=== PATIENT | male | born 1950 | race African-American/Black ===

== ENCOUNTER 2019-10-03 04:51 | Inpatient (IN) | payer MEDICARE, OTHER ==
[2019-10-03] VITALS (17 sets, daily range): BP systolic 15–150; BP diastolic 74–96
[~2019-10-03] VITALS: Ht 180.3 cm; Wt 85.3 kg
--- NOTE | 2019-10-03 05:10 | NUR ---
MS RN ADMITTING NOTES RECEIVED PT FROM HOME WITH WALKER AND FAMILY. PT A/O X3 AND ABLE TO MAKE NEEDS KNOWN. PT AWAIT SX. PT DENIES PAIN AT THIS TIME. INSERTED IV ACCESS ON LAC #18G. RESPIRATIONS EVEN AND UNLABORED WITH NO S/S OF ACUTE DISTRESS OR SOB NOTED. PT ORIENTED TO UNIT AND STAFF. SAFETY MEASURES IN PLACE WITH BED IN LOWEST LOCKED POSITION WITH SIDE RAILS UP X2. CALL LIGHT WITHIN REACH. WILL CONTINUE TO MONITOR.
--- NOTE | 2019-10-03 07:29 | NUR ---
MS RN OPENING NOTES PT RECEIVED SITTING ON WHEELCHAIR BY BEDSIDE. A/O X 3-4. ABLE TO MAKE NEEDS KNOWN, DENIES PAIN OR ANY DISCOMFORTS AT THIS TIME. ON ROOM AIR, BREATHING EVEN AND UNLABORED. IV ACCESS ON LAC G# 18 INTACT, PATENT AND FLUSHES WELL. PT FOR SURGERY TODAY, NPO MAINTAINED. CALL LIGHT IN REACH. WILL CONTINUE TO MONITOR PT ACCORDINGLY.
--- NOTE | 2019-10-03 07:30 | NUR ---
MS RN NOTES MELISSA CHAIR RECEIVED FROM [facility] FOR FAMILY. CHARGE NURSE AWARE WELL ONCOMING NURSE.
--- NOTE | 2019-10-03 08:11 | NUR ---
MS RN NOTES PT IN BED RESTING AWAITING SX WITH FAMILY AT BEDSIDE. PT A/O X3 AND ABLE TO MAKE NEEDS KNOWN. ENDORSED TO ONCOMING NURSE FOR KILO.
--- NOTE | 2019-10-03 08:17 | NUR ---
RN NOTES PT PICKED-UP BY [facility]SP[employer] STAFF VIA PT'S BED TO SURGERY FOR RIGHT KNEE MEDIAL UNICOMPARTMENT ARTHROPLASTY.
[2019-10-03] MEDS ORDERED: AMLO5TAB9 PO (08:31)
[2019-10-03] MEDS ORDERED: HYDR-4354 PO (08:31)
[2019-10-03] MEDS ORDERED: ATOR10TA PO (08:31)
[2019-10-03] MEDS ORDERED: INSULIN (08:31)
[2019-10-03] MEDS ORDERED: METF-440 PO (08:31)
[2019-10-03] MEDS ORDERED: ALPR0.25 PO (08:31)
[2019-10-03] MEDS ORDERED: LOSA25TA27 PO (08:31)
[2019-10-03] MEDS ORDERED: ASPI-1169 PO (08:31)
[2019-10-03] MEDS ORDERED: MULT1TAB73 PO (08:31)
[2019-10-03] MEDS ORDERED: TRANEXAMIC ACID 3,000 MG in SODIUM CHLORIDE IRRIG SOLUTION 70 ML IR ONE (09:00)
[2019-10-03] MEDS ORDERED: MIDAZOLAM HCL 2 MG/2ML VIAL ONE (09:13)
[2019-10-03] MEDS ORDERED: FENTANYL PF 100MCG/2ML AMPUL ONE (09:13)
[2019-10-03] MEDS ORDERED: FAMOTIDINE/PF INJ 20 MG/2 ML VIAL IV ONE (09:14)
[2019-10-03] MEDS ORDERED: MEPERIDINE HCL/PF 100 MG/ML DISP.SYRIN ONE (09:14)
[2019-10-03] MEDS ORDERED: BUPIVACAINE 0.5 % PF 150 MG/30 ML VIAL ONE (09:15)
[2019-10-03] MEDS ORDERED: ALBU2.5V38 IH (09:54)
[2019-10-03] MEDS ORDERED: INSU100I26 SQ (09:54)
[2019-10-03] MEDS ORDERED: MONT10TA22 PO (09:54)
[2019-10-03] MEDS ORDERED: BACITRACIN 50000 UNITS/VIAL ONE (10:02)
[2019-10-03] MEDS: IV D5/0.45 NACL 1,000 ML IV PRN (12:45)
[2019-10-03] MEDS ORDERED: NALOXONE HCL 0.4 MG/ML AMPUL IV PRN (13:00)
[2019-10-03] MEDS ORDERED: DULCOLAX 10 MG/SUPP.RECT RC PRN (13:00)
[2019-10-03] MEDS ORDERED: MAGNESIUM HYDROXIDE 30 ML UDC PO PRN ×2 (13:00→15:00)
[2019-10-03] MEDS: DRONABINOL (2.5 MG) 2.5 MG CAPSULE PO SCH ×2 (13:00→20:54)
[2019-10-03] MEDS ORDERED: diphenhydrAMINE HCL 25 MG CAPSULE PO PRN (13:00)
[2019-10-03] MEDS ORDERED: SENOKOT 8.6 MG TABLET PO PRN (13:00)
[2019-10-03] MEDS ORDERED: CLONIDINE HCL 0.1 MG TABLET PO PRN (13:00)
[2019-10-03] MEDS ORDERED: TYLENOL 650 MG TABLET PO PRN (13:00)
[2019-10-03] MEDS ORDERED: oxyCODONE IR immediate release 5 MG PO PRN ×2 (13:00→21:30)
[2019-10-03] MEDS ORDERED: HYDROCODONE/APAP 10/325MG 1 EA TABLET PO PRN ×2 (13:00→15:00)
[2019-10-03] MEDS ORDERED: HYDROCODONE/APAP 5/325MG 1 EACH TABLET PO PRN ×2 (13:00→15:00)
[2019-10-03] MEDS ORDERED: MENTHOL/CETYLPYRD (CEPACOL) 1 LOZ LOZENGE MM PRN (13:00)
[2019-10-03] MEDS ORDERED: MAG HYDROX/AL HYDROX/SIMETH 30 ML UDC PO PRN ×2 (13:00→15:00)
[2019-10-03] MEDS ORDERED: ZOFRAN 4mg/2ML IV PRN (13:00)
[2019-10-03] MEDS ORDERED: ONDANSETRON HCL/PF 4 MG/2 ML VIAL IVP PRN ×2 (13:00→15:00)
[2019-10-03] MEDS ORDERED: AMBIEN 5 MG TABLET PO PRN (13:00)
[2019-10-03] MEDS ORDERED: COLACE 250 MG CAPSULE PO PRN (13:00)
--- NOTE | 2019-10-03 13:05 | NUR ---
RN NOTES PT RETURNED TO UNIT @ 1225 FROM SURGERY ACCOMPANIED BY Cristiana VACA S/P RIGHT KNEE UNICOMPARTMENTAL ARTHROPLASTY. PT IS SLIGHTLY LETHARGIC BUT ABLE TO RESPONSE TO VERBAL STIMULI AND FOLLOWS COMMANDS AT THIS TIME. PT NOTED WITH DRESSING ON RIGHT LEG WRAP WITH RUFINO BANDAGE, NO ACTIVE BLEEDING NOTED WITH SCD'S ON BOTH LEGS. MD TO CHANGE DRESSING ONLY. V/S TAKEN: BP 123/92, R 18.P 73, T 97.6F AND SP02 89%, PT PLACED ON 02 VIA N/C AT 2LPM AND SP02 WENT UP TO 98%. ALL ORDERS VERIFIED AND CARRIED OUT. ADMINISTERED D5/12NS AT 125ML/HR VIA LAC, NO S/S OF INFILTRATIONS NOTED. PT WITH NAM CATH IN PLACE AND ACTIVELY DRAINING CLEAR YELLOWISH URINE TO BEDSIDE URINARY BAG. BED PLACED IN LOW LOCKED POSITION WITH ST UP X2. CALL LIGHT PLACED WITHIN EASY REACH. WILL CONTINUE TO MONITOR.
[2019-10-03] MEDS: NICOTINE PATCH (21MG) 21 MG PATCH.TD24 TD SCH (14:08)
--- NOTE | 2019-10-03 14:21 | NUR ---
RN NOTES NICOTINE PATCH 21 MG APPLIED TO RIGHT DELTOID.
--- NOTE | 2019-10-03 14:30 | NUR ---
RN NOTES PT SEEN AND EVALUATED BY PHYSICAL THERAPIST, CPM MACHINE WAS PLACED AND SET AT 0-30 TOLERATED AND FUNCTIONING WELL. WILL CONTINUE TO MONITOR
[2019-10-03] MEDS: HYDROMORPHONE 1 MG/1 ML DISP.SYRIN SQ PRN ×2 (14:53→19:14)
--- NOTE | 2019-10-03 14:55 | NUR ---
RN NOTES/PAIN MANAGEMENT PT C/O PAIN ON HIS RIGHT KNEE WITH SCALE OF 9/10. PRN DILAUDID 0.5MG/O.5ML ADMINISTERED IVP AT 1452. WILL CONTINUE TO MONITOR AND REASSESS PT.
[2019-10-03] MEDS ORDERED: Z GUARD REMEDY 2 OZ OINT TP PRN (15:00)
[2019-10-03] MEDS ORDERED: ALBUTEROL FS 2.5 MG/3 ML VIAL.NEB IH PRN (15:00)
[2019-10-03] MEDS ORDERED: ALPRAZOLAM 0.25 MG TABLET PO PRN (15:00)
[2019-10-03] MEDS ORDERED: ACETAMINOPHEN 325 MG TABLET PO PRN (15:00)
[2019-10-03] MEDS ORDERED: ZOLPIDEM TARTRATE 5 MG TABLET PO PRN (15:00)
[2019-10-03] MEDS: ANCEF 1 G in IV D5W 50 ML IV SCH (16:06)
[2019-10-03] MEDS: DOCUSATE SODIUM 100 MG CAPSULE PO SCH (16:07)
[2019-10-03] MEDS: ASPIRIN 325 MG TABLET PO SCH (16:07)
--- NOTE | 2019-10-03 16:18 | NUR ---
RN NOTES/PAIN MANAGEMENT PT MOANING AND GRIMACING, VERBALIZED THAT HE'S IN PAIN 6/10 SCALE AND WANTS CPM MACHINE TO BE REMOVED. CPM MACHINE REMOVED AND PRN OXY 1R 5MG PO GIVEN AT 1618. WILL CONTINUE TO MONITOR AND REASSESS PT.
[2019-10-03] MEDS: ATORVASTATIN 10 MG TABLET PO SCH (17:19)
--- NOTE | 2019-10-03 18:50 | NUR ---
MS RN CLOSING NOTES PT IN BED ASLEEP AT THIS TIME, EASILY AWAKENS. AT BEDSIDE. A/O X3 AND ABLE TO MAKE NEEDS KNOWN. ON PRN SUPPLEMENTAL O2 AT 2LPM VIA N/C, TOLERATING WELL WITH NO SOB NOTED. DRESSING ON RIGHT/KNEE LEG WRAP WITH RUFINO BANDAGE C/D/I. NAM IN PLACE AND PATENT WITH CLEAR YELLOW URINE NOTED IN THE URINARY BAG, NAM CARE DONE. ALL NEEDS AND CARE ATTENDED WELL. SAFETY MEASURES IN PLACE. BED IN LOWEST, LOCKED POSITION WITH SR UP X2. WILL ENDORSE TO TRANSLATOR/INTERPRETER NURSE FOR KILO..
[2019-10-03] MEDS ORDERED: DEXTROSE 50%-WATER 50 ML DISP.SYRIN IV PRN (19:00)
--- NOTE | 2019-10-03 19:10 | NUR ---
MS RN NOTES RECEIVED ON BED A/O X4,S/P RIGHT KNEE ARTHROPLASTY,DRESSING INTACT AND DRY,WRAPPED WITH ELASTIC BANDAGE.DVT PUMP IN USED ON LEFT LOWER LEG.IVF D5 1/2 NS AT 125ML/HR RATE IN PROGRESS VIA IV PUMP ON LEFT AC,SITE PATENT.NAM CATH IN PLACE DRAINING YELLOWISH OUTPUT.C/O RIGHT KNEE PAIN 10/10 ON PAIN SCALE,WILL MEDICATE. AT BEDSIDE.INCENTIVE SPIROMETRY AT BEDSIDE,PATIENT ENCOURAGED TO USE IT WHILE AWAKE FOR LUNG EXERCISE.CALL LIGHT IN REACH,NEEDS ANTICIPATED.
--- NOTE | 2019-10-03 19:14 | NUR ---
MS RN NOTES PAIN MANAGEMENT C/O RIGHT KNEE PAIN 10/10 ON PAIN SCALE,DILAUDID 0.5MG IV GIVEN BY GARCIA BOOTH.WILL MONITOR FOR RELIEF.
[2019-10-03] MEDS: FAMOTIDINE (20 MG) 20 MG TABLET PO SCH (20:54)
[2019-10-03] MEDS ORDERED: HYDROMORPHONE 1 MG/1 ML DISP.SYRIN SQ PRN (21:00)
--- NOTE | 2019-10-03 21:00 | NUR ---
MS RN NOTES MD VISIT SEEN BY DR BROWN FOR PAIN MANAGEMENT,WITH ORDERS NOTED AND CARRIED OUT.
[2019-10-03] MEDS: BLOOD SUGAR DIAGNOSTIC 1 EACH STRIP IN SCH (21:50)
--- NOTE | 2019-10-03 21:50 | NUR ---
MS RN NOTES ACCU-CHECK BLOOD SUGAR CHECK 203,COVERED WITH HUMULIN R 4 UNITS,ALONG WITH INSULIN GLARGIN 25 UNITS,GIVEN SQ ON LEFT DELTOID.SNACKS PROVIDED AT BEDSIDE,WITH APPLE JUICE.
[2019-10-03] MEDS: MONTELUKAST SODIUM (10MG) 10 MG TABLET PO SCH (21:55)
--- NOTE | 2019-10-03 21:55 | NUR ---
MS RN NOTES MOANS IN PAIN,MEDICATED WITH OXY IR 5MG PO ORDERED ONE TIME BY PAIN MANAGEMENT DOCTOR STEPHANIE.
[2019-10-03] MEDS ORDERED: oxyCODONE IR immediate release 5 MG PO ONE (22:00)
[2019-10-03] MEDS: INSULIN GLARGINE, 100 UNIT/ML CARTRIDGE SQ SCH (22:06)
[2019-10-03] MEDS: INSULIN REGULAR, HUMAN 100 UNIT/ML 3 ML VIAL SQ PRN (22:08)
--- NOTE | 2019-10-03 22:55 | NUR ---
MS RN NOTES SLEEPING THIS TIME.KEPT WARM AND COMFORTABLE.
--- NOTE | 2019-10-04 01:00 | NUR ---
MS RN NOTES LAST DOSE OF ANCEF 1MG IV ADMINISTERED.
[2019-10-04] MEDS: ANCEF 1 G in IV D5W 50 ML IV SCH (01:03)
[2019-10-04] MEDS: HYDROMORPHONE 1 MG/1 ML DISP.SYRIN SQ PRN ×2 (01:14→05:38)
--- NOTE | 2019-10-04 01:14 | NUR ---
MS RN NOTES PAIN MANAGEMENT C/O RIGHT KNEE PAIN 7/10 ON PAIN SCALE.MEDICATED WITH DILAUDID 0.5MG IV ORDERED.WILL MONITOR FOR RELIEF.
[2019-10-04] MEDS: oxyCODONE IR immediate release 5 MG PO PRN ×4 (03:27→21:33)
--- NOTE | 2019-10-04 03:27 | NUR ---
MS RN NOTES AWAKE,REPOSITION SELF,C/O RIGHT KNEE PAIN 7/10 ON PAIN SCALE,MEDICATED WITH OXY IR 10MG PO ORDERED.
--- NOTE | 2019-10-04 05:38 | NUR ---
MS RN NOTES PAIN MANAGEMENT AWAKE,HAVING ORAL HYGIENE,C/O RIGHT KNEE PAIN 9/10 ON PAIN SCALE,MEDICATED WITH DILAUDID 0.5MG IV ORDERED.
[2019-10-04] MEDS: BLOOD SUGAR DIAGNOSTIC 1 EACH STRIP IN SCH ×4 (05:43→21:37)
--- NOTE | 2019-10-04 05:50 | NUR ---
MS RN NOTES ACCU-CHECK BLOOD SUGAR CHECK 103,NO INSULIN COVERAGE.
--- NOTE | 2019-10-04 06:08 | NUR ---
MS RN NOTES RE ASSESS,PAIN MANAGEMENT ADMINISTERED AT 0538,PATIENT CLAIMED STILL THE SAME AT 08/02, WILL FOLLOW UP TO MEDICATE WITH OXY IR PO IN AN HOUR ORDERED.
[2019-10-04 06:33] LABS: BASOPHILS % (AUTO) 0.5 % (0.0-2.0); EOSINOPHILS % (AUTO) 3.7 % (0.0-6.0); HEMATOCRIT 40 % (39-51); HEMOGLOBIN 13.3 g/dL (13.5-17.5); LYMPHOCYTES # (AUTO) 1.7 /CMM (0.8-4.8); LYMPHOCYTES % (AUTO) 23.2 % (20.0-44.0); MEAN CORPUSCULAR HGB CONC 33 g/dl (31.0-36.0); MEAN CORPUSCULAR VOLUME 96 fL (80-96); MONOCYTES % (AUTO) 13.3 % (2.0-12.0); NEUTROPHILS # (AUTO) 4.2 /CMM (1.8-8.9); NEUTROPHILS % (AUTO) 59.3 % (43.0-81.0); PLATELET COUNT (AUTO) 323 /CMM (150-450); RED BLOOD CELL COUNT(AUTO) 4.17 MIL/uL (4.5-6.0); WHITE BLOOD COUNT (AUTO) 7.1 K/uL (4.3-11.0)
--- NOTE | 2019-10-04 06:40 | NUR ---
MS RN NOTES STILL IN PAIN 7/10 ON PAIN SCALE,OXY IR 10MG PO GIVEN ORDERED 60 MINUTES APART WITH DILAUDID.
--- NOTE | 2019-10-04 07:00 | NUR ---
MS RN NOTES RESTING COMFORTABLY ON BED,STILL WITH ON OFF PAIN,MANAGE WITH DILAUDID IV AND OXY IR PO ALTERNATELY ORDERED BY DR BROWN.RIGHT KNEE DRESSING INTACT AND DRY.INCENTIVE SPIROMETRY USED WHILE AWAKE.IVF ON STANDBY,TAKING PO WELL.NEGATIVE FOR NAUSEA/VOMITING.ENCOURAGED AMBULATION IF TOLERATED.NAM CATH DRAINS WELL.IN NO ACUTE DISTRESS.NEEDS ATTENDED.
[2019-10-04 07:11] LABS: CREATININE 0.9 mg/dL (0.6-1.3); MAGNESIUM 1.5 mg/dL (1.8-2.4); PHOSPHORUS 2.5 mg/dL (2.5-4.9); POTASSIUM 3.8 mmol/L (3.5-5.1)
--- NOTE | 2019-10-04 07:30 | NUR ---
MS RN NOTES SPOKE TO DR BROWN REGARDING DILAUDID 0.5MG MISTAKENLY GIVEN IV,HE SAID ITS OK,AND JUST GIVE THE NEXT DOSE TO GIVE IT SQ.ALSO HE ORDERED TO D/C DILAUDID 0.5MG SQ AND OXY IR 5MG NOTED AND CARRIED OUT.NURSE BALDEMAR MADE AWARE OF NEW ORDER
--- NOTE | 2019-10-04 07:30 | NUR ---
m/s hot dog vendor: initial assessment received pt in bed, dozing off then suddenly awaken. c/o ashley wrap to rle too tight, adjusted ashley wrap per request. dressing remains c/d/i. at bedside. pt stated, "he just had his pain med, about to dose off, probably the pain on my knee due to ashley wrap being too tight, i will let my doctor (orthopedic) know when i see him."
[2019-10-04 08:00] VITALS: BP 152/87
[2019-10-04] MEDS: ASPIRIN 325 MG TABLET PO SCH ×2 (08:33→17:26)
[2019-10-04] MEDS: AMLODIPINE BESYLATE 5 MG TABLET PO SCH (08:33)
[2019-10-04] MEDS: TAMSULOSIN 0.4 MG CAP.SR.24H PO SCH (08:33)
[2019-10-04] MEDS: DRONABINOL (2.5 MG) 2.5 MG CAPSULE PO SCH ×2 (08:34→21:00)
[2019-10-04] MEDS: FAMOTIDINE (20 MG) 20 MG TABLET PO SCH ×2 (08:34→21:00)
[2019-10-04] MEDS: MULTIVITAMINS,THERAGRAN 1 UDTAB TABLET PO SCH (08:34)
[2019-10-04] MEDS: DOCUSATE SODIUM 100 MG CAPSULE PO SCH ×2 (08:34→17:26)
[2019-10-04] MEDS: LOSARTAN POTASSIUM 25 MG TABLET PO SCH (08:34)
[2019-10-04] MEDS: NICOTINE PATCH (21MG) 21 MG PATCH.TD24 TD SCH (08:35)
--- NOTE | 2019-10-04 08:45 | NUR ---
m/s gas well pumper: notes pt still c/o tightness on foam dressing. only md to change dressing and pt made aware and verbalized understanding. remains at bedside. pt able to wiggle toes and with good sensation and good circulation. salma arndt) used car salesperson for dr. pereira notified, spoke to him over the phone and will check and see pt when he gets here. pt and made aware.
[2019-10-04] MEDS ORDERED: ASPIRIN 81 MG TAB.CHEW PO SCH (09:00)
--- NOTE | 2019-10-04 09:30 | NUR ---
m/s panelboard operator: ortho f/u salma flores at bedside and removed rle dressing and re applied dressing and ashley wrap. noted alcira intact, clean, and dry prior to dressing changed. teaching provided to and pt not to remove the dressing until next visit at the orthopedic. pt and verbalized understanding. Addendum: 10/04/19 at 0940 by BALDEMAR MADRID LVN also received verbal order to remove the houston catheter.
[2019-10-04] MEDS: IV D5/0.45 NACL 1,000 ML IV PRN (09:39)
--- NOTE | 2019-10-04 09:48 | NUR ---
m/s academic support specialist: notes oxy ir 10mg given prior to p.t. tx and discomfort by rn student with rn instructor.
--- NOTE | 2019-10-04 09:51 | NUR ---
m/s property portfolio officer: notes houston catheter removed by rn instructor with rn studenttol. hui.
--- NOTE | 2019-10-04 10:10 | NUR ---
m/s aircraft assembler: notes pt voided with 100ml of clear tim using urinal at this time.
--- NOTE | 2019-10-04 10:20 | NUR ---
m/s director of clinical services: notes up with p.t. today using fww. after tx cpm applied by physical therapist. instructed to call for assistance. will continue to monitor.
--- NOTE | 2019-10-04 10:48 | NUR ---
m/s armature winder: notes pt resting comfortable in bed with eyes close. remains at bedside. will continue to monitor.
[2019-10-04] MEDS: INSULIN REGULAR, HUMAN 100 UNIT/ML 3 ML VIAL SQ PRN ×3 (12:09→21:46)
[2019-10-04] MEDS: Magnesium 1GM/D5W 100ML PREMIX 100 ML IV SCH ×2 (12:10→13:20)
--- NOTE | 2019-10-04 13:10 | NUR ---
m/s bailiff: notes in bed sounds asleep. no distress noted. will continue to monitor. remains at bedside.
--- NOTE | 2019-10-04 14:00 | NUR ---
m/s applications intern: md visit seen and examined by tee rey dnp at this time. pt for d'c planning tomorrow.
[2019-10-04] MEDS ORDERED: ZOLPIDEM TARTRATE 10 MG TABLET PO PRN (14:30)
[2019-10-04 16:00] VITALS: BP 118/68
--- NOTE | 2019-10-04 16:35 | NUR ---
m/s offshore wind operations manager: notes pt voided 300ml using urinal. remains at bedside. no c/o pain at this time.
--- NOTE | 2019-10-04 16:52 | NUR ---
m/s skid road worker: notes bs preec=[id number], coverage of 2 units not given due to pt not eating much per pt and . instructed to call for assistance.
[2019-10-04] MEDS: ATORVASTATIN 10 MG TABLET PO SCH (17:26)
--- NOTE | 2019-10-04 17:30 | NUR ---
m/s corpsman: notes pt refused his dinner. remains at bedside. instructed to call for assistance.
--- NOTE | 2019-10-04 19:00 | NUR ---
m/s manufacturing quality inspector: notes bedside report given to perez (rn) for continuity of care. remains at bedside. needs attended.
--- NOTE | 2019-10-04 19:20 | NUR ---
MS RN NOTES RECEIVED LAYING COMFORTABLY ON BED,A/O X4,S/P RIGHT KNEE SURGERY YESTERDAY 10/[address] FISHER.DRESSING CHANGED DONE BY MD TODAY.PAIN TOLERABLE AT THE MOMENT,IVF IN PROGRESS ON LAC,SITE PATENT.VOIDING FREELY PER URINAL. AT BEDSIDE.CALL LIGHT IN REACH,NEEDS ANTICIPATED.
[2019-10-04 20:00] VITALS: BP 143/80
[2019-10-04 20:28] VITALS: BP 145/80
[2019-10-04] MEDS: MONTELUKAST SODIUM (10MG) 10 MG TABLET PO SCH (21:32)
--- NOTE | 2019-10-04 21:33 | NUR ---
MS RN NOTES PAIN MANAGEMENT C/O RIGHT KNEE PAIN 7/10 ON PAIN SCALE,MEDICATED WITH OXY IR 10MG PO ORDERED
[2019-10-04] MEDS: INSULIN GLARGINE, 100 UNIT/ML CARTRIDGE SQ SCH (21:44)
--- NOTE | 2019-10-04 21:50 | NUR ---
MS RN NOTES ACCU-CHECK BLOOD SUGAR CHECK 154,COVERED WITH HUMULIN R 2 UNITS PER SLIDING SCALE,ALONG WITH LANTUS 25 UNITS SCHEDULED.SNACKS PROVIDED AT BEDSIDE.
--- NOTE | 2019-10-04 21:54 | NUR ---
MS RN NOTES C/O INSOMNIA,AMBIEN 10MG PO GIVEN PER PATIENT REQUEST.
--- NOTE | 2019-10-04 22:00 | NUR ---
MS RN NOTES IV SITE LEAKING,OFFERED TO PUT NEW SALINE LOCK,PATIENT WANTS IT LATER.
[2019-10-05] MEDS: BLOOD SUGAR DIAGNOSTIC 1 EACH STRIP IN SCH ×2 (05:42→11:59)
--- NOTE | 2019-10-05 05:45 | NUR ---
MS RN NOTES ACCU-CHECK BLOOD SUGAR CHECK 134,COVERED WITH HUMULIN R 2UNITS PER SLIDING SCALE.
[2019-10-05] MEDS: INSULIN REGULAR, HUMAN 100 UNIT/ML 3 ML VIAL SQ PRN (05:50)
--- NOTE | 2019-10-05 06:00 | NUR ---
MS RN NOTES C/O PAIN 6/10 ON PAIN SCALE VIA RIGHT KNEE,OFFERED PAIN PILL BUT REFUSED.IV SITE LEAKING,IVF HELD.OFFERED TO PUT NEW SALINE LOCK BUT REFUSED.
[2019-10-05 06:49] LABS: CALCIUM, SERUM 8.7 mg/dL (8.5-10.1); CREATININE 0.9 mg/dL (0.6-1.3); MAGNESIUM 1.7 mg/dL (1.8-2.4); POTASSIUM 3.9 mmol/L (3.5-5.1)
--- NOTE | 2019-10-05 06:51 | NUR ---
MS RN NOTES SLEPT WELL AT NIGHT,PAIN MANAGEMENT EFFECTIVE,POSSIBLE D/C TODAY TO HOME.IN NO ACUTE DISTRESS WILL ENDORSE TO DAY NURSE FOR KILO.
--- NOTE | 2019-10-05 07:30 | NUR ---
MS RN RECEIVED ON BED,AWAKE,ALERT,ORIENTED X4, NOT IN ANY FORM OF DISTRESS, RESPIRATIONS EVEN AND UNLABORED,NO SOB NOTED, LUNGS ARE CLEAR,ABDOMEN SOFT,POSITIVE BOWEL SOUNDS,S/P RIGHT KNEE SURGERY W/ DRESSING DRY AND INTACT,WILL MONITOR PATIENT'S CONDITION.
[2019-10-05] MEDS: oxyCODONE IR immediate release 5 MG PO PRN (07:54)
[2019-10-05 08:00] VITALS: BP 154/90
--- NOTE | 2019-10-05 08:22 | NUR ---
MS VACA BREAKFAST SERVED,DUE MEDS GIVEN,TOLERATED WELL.
[2019-10-05] MEDS: NICOTINE PATCH (21MG) 21 MG PATCH.TD24 TD SCH ×2 (08:41→08:51)
[2019-10-05] MEDS: MULTIVITAMINS,THERAGRAN 1 UDTAB TABLET PO SCH (08:42)
[2019-10-05] MEDS: ASPIRIN 325 MG TABLET PO SCH (08:42)
[2019-10-05] MEDS: AMLODIPINE BESYLATE 5 MG TABLET PO SCH (08:43)
[2019-10-05] MEDS: DOCUSATE SODIUM 100 MG CAPSULE PO SCH (08:43)
[2019-10-05 08:44] VITALS: BP 154/90
[2019-10-05] MEDS: TAMSULOSIN 0.4 MG CAP.SR.24H PO SCH (08:44)
[2019-10-05] MEDS: LOSARTAN POTASSIUM 25 MG TABLET PO SCH (08:44)
[2019-10-05] MEDS: DRONABINOL (2.5 MG) 2.5 MG CAPSULE PO SCH (08:44)
[2019-10-05] MEDS: FAMOTIDINE (20 MG) 20 MG TABLET PO SCH (08:44)
--- NOTE | 2019-10-05 09:00 | NUR ---
ms miller breakfast served,due meds given,tolerated well.
[2019-10-05] MEDS: Magnesium 1GM/D5W 100ML PREMIX 100 ML IV SCH ×2 (11:06→11:59)
[2019-10-05] MEDS ORDERED: OXYC-133 PO (11:10)
--- NOTE | 2019-10-05 12:00 | NUR ---
ms rn blood sugar - 152 - refused coverage,no s/s of hypoglycemia, refused lunch.
--- NOTE | 2019-10-05 13:10 | NUR ---
ms home health rn instructions given, prescription of percocet given to ,went home,all needs attended.
== END 2019-10-05 13:09 | disposition home or self-care (01) | DRG 470 ==
LOC: DS 04:51 → MED 04:53 → DS 10-04 07:18 → MED 10-04 07:19
PROVIDERS: ADMIT Family Medicine; ATTEND Nurse Practitioner Acute Care
PROC: 0SRC0J9 Replacement of Right Knee Joint with Synthetic Substitute, Cemented, Open Approach (ICD-10-PCS; principal; 2019-10-03)
DX: M17.11 Unilateral primary osteoarthritis, right knee (principal); E87.1 Hypo-osmolality and hyponatremia; E11.9 Type 2 diabetes mellitus without complications; I10 Essential (primary) hypertension; E78.5 Hyperlipidemia, unspecified; E83.42 Hypomagnesemia; F12.90 Cannabis use, unspecified, uncomplicated; M19.90 Unspecified osteoarthritis, unspecified site; Z79.51 Long term (current) use of inhaled steroids; Z79.82 Long term (current) use of aspirin; Z79.4 Long term (current) use of insulin; Z79.84 Long term (current) use of oral hypoglycemic drugs; Z79.899 Other long term (current) drug therapy; Z72.0 Tobacco use; Z96.651 Presence of right artificial knee joint; Z83.3 Family history of diabetes mellitus; J45.909 Unspecified asthma, uncomplicated; M94.261 Chondromalacia, right knee; G47.00 Insomnia, unspecified; N40.0 Benign prostatic hyperplasia without lower urinary tract symptoms; S83.281A Other tear of lateral meniscus, current injury, right knee, initial encounter; X58.XXXA Exposure to other specified factors, initial encounter; Y92.9 Unspecified place or not applicable
CPT/HCPCS: 36415; 80048-TC; 80061-TC; 82962-TC; 83735-TC; 84100-TC; 85025-TC; 86850-TC; 87081-TC; 88305-TC; 88311-TC; 97110-TC; 97116-TC; 97530-TC; 97760-TC; G0378; J0690; J1170; J1815; J2175; J2250; J2405; J2704; J2765; J3010; J3475; J3490; J7030; J7060; Q0167